=== PATIENT | female | born 1960 | race Caucasian/White ===

== ENCOUNTER 2018-01-05 17:35 | Inpatient (IN) | payer OTHER ==
[~2018-01-05] VITALS: Ht 162.6 cm; Wt 79.0 kg
[~2018-01-05 17:35] MED LIST: NO HOME MEDS
[2018-01-05 18:23] LABS: BASOPHILS % (AUTO) 0.4 % (0-1); EOSINOPHILS # (AUTO) 0.1 X10'3 (0-0.9); EOSINOPHILS % (AUTO) 2.3 % (0-6); HEMATOCRIT 39.3 % (35.0-45.0); LYMPHOCYTES # (AUTO) 1.2 X10'3 (1.1-4.8); LYMPHOCYTES % (AUTO) 25.3 % (21-51); MEAN CORPUSCULAR HEMOGLOBIN 32.6 PG (27.0-31.0); MEAN CORPUSCULAR HGB CONC 35.6 % (33.0-36.5); MEAN CORPUSCULAR VOLUME 91.6 FL (78-98); MONOCYTES # (AUTO) 0.3 X10'3 (0-0.9); MONOCYTES % (AUTO) 7.2 % (2-12); NEUTROPHILS % (AUTO) 64.8 % (42-75); PLATELET COUNT 157 X10'3 (140-440); RED BLOOD COUNT 4.29 X10'6 (4.20-5.60); RED CELL DISTRIBUTION WIDTH 12.8 % (11.5-14.5); WHITE BLOOD COUNT 4.7 X10'3 (4.5-11.0)
[2018-01-05 18:31] LABS: INR 0.9 INR; PARTIAL THROMBOPLASTIN TIME 26 SECONDS (22-32); PROTHROMBIN TIME 9.7 SECONDS (9.0-12.0)
[2018-01-05 18:36] LABS: ALANINE AMINOTRANSFERASE 38 U/L (12-78); ALBUMIN 3.9 G/DL (3.4-5.0); ALBUMIN/GLOBULIN RATIO 0.9 (1.1-1.5); ALKALINE PHOSPHATASE 128 IU/L (46-116); ANION GAP 9 (8-16); ASPARTATE AMINO TRANSFERASE 26 U/L (10-37); BILIRUBIN,TOTAL 0.4 MG/DL (0.1-1.0); BLOOD UREA NITROGEN 10 MG/DL (7-18); BUN/CREATININE RATIO 16.1 (6.6-38.0); CALCIUM 8.7 MG/DL (8.5-10.1); CHLORIDE 103 MMOL/L (99-107); CREATININE 0.62 MG/DL (0.40-0.90); GLUCOSE 112 MG/DL (70-104); POTASSIUM 3.8 MMOL/L (3.5-5.1); SODIUM 140 MMOL/L (135-145); TOTAL CARBON DIOXIDE 27.8 MMOL/L (24-32); TOTAL PROTEIN 8.2 G/DL (6.4-8.2); eGFR > 90 ML/MIN
[2018-01-05 18:40] LABS: TROPONIN I < 0.04 NG/ML (0.0-0.05)
[2018-01-05] MEDS ORDERED: aspirin 81mg tab.chew PO ONE (19:15)
[2018-01-05 19:47] LABS: CLARITY,URINE CLEAR (Clear); COLOR,URINE YELLOW (Yellow); GLUCOSE, URINE NEGATIVE (Neg); KETONES,URINE NEGATIVE (Neg); LEUKOCYTE ESTERASE ,URINE NEGATIVE (Neg); NITRITES, URINE NEGATIVE (Neg); OCCULT BLOOD,URINE SMALL (Neg); PROTEIN,URINE NEGATIVE (Neg); UROBILINOGEN,URINE 0.2 E.U/dL (0.2-1.0)
[2018-01-05 19:51] LABS: UA COLLECTION TYPE CLN CATCH MIDSTREAM
[2018-01-05 19:52] LABS: BACTERIA,URINE NONE SEEN /HPF (Neg); SQUAMOUS EPITHELIAL CELL,UR NONE SEEN /LPF (FEW); WBC,URINE NONE SEEN /HPF (0-4)
[2018-01-05] MEDS ORDERED: magnesium hydroxide 30ml (MOM) UD suspension PO PRN (21:55)
[2018-01-05] MEDS ORDERED: ondansetron/PF 4mg/2ml inj IV PRN (21:55)
[2018-01-05] MEDS ORDERED: mag hydrox/Alum hydrox/simeth 30ml oral suspension PO PRN (21:55)
[2018-01-05] MEDS ORDERED: acetaminophen 325mg tablet PO PRN (21:55)
[2018-01-05 22:30] VITALS: BP 129/78
[2018-01-06 02:15] VITALS: BP 113/61
[2018-01-06 06:00] VITALS: BP 124/57
[2018-01-06 06:03] LABS: BASOPHILS % (AUTO) 0.2 % (0-1); EOSINOPHILS # (AUTO) 0.2 X10'3 (0-0.9); EOSINOPHILS % (AUTO) 3.3 % (0-6); HEMATOCRIT 38.8 % (35.0-45.0); HEMOGLOBIN 13.9 g/dl (12.0-16.0); LYMPHOCYTES # (AUTO) 1.3 X10'3 (1.1-4.8); MEAN CORPUSCULAR HGB CONC 35.7 % (33.0-36.5); MEAN CORPUSCULAR VOLUME 92.3 FL (78-98); MEAN PLATELET VOLUME 9.2 FL (7.4-10.4); MONOCYTES # (AUTO) 0.3 X10'3 (0-0.9); NEUTROPHILS % (AUTO) 62.5 % (42-75); PLATELET COUNT 154 X10'3 (140-440); RED BLOOD COUNT 4.21 X10'6 (4.20-5.60); RED CELL DISTRIBUTION WIDTH 12.8 % (11.5-14.5); WHITE BLOOD COUNT 4.8 X10'3 (4.5-11.0)
[2018-01-06 06:19] LABS: ALANINE AMINOTRANSFERASE 38 U/L (12-78); ALBUMIN 3.6 G/DL (3.4-5.0); ALBUMIN/GLOBULIN RATIO 0.9 (1.1-1.5); ALKALINE PHOSPHATASE 105 IU/L (46-116); ANION GAP 9 (8-16); ASPARTATE AMINO TRANSFERASE 23 U/L (10-37); BILIRUBIN,TOTAL 0.7 MG/DL (0.1-1.0); BLOOD UREA NITROGEN 10 MG/DL (7-18); BUN/CREATININE RATIO 15.4 (6.6-38.0); CALCIUM 8.5 MG/DL (8.5-10.1); CHLORIDE 102 MMOL/L (99-107); CHOL/HDL RATIO 5.5 (0.00-4.99); CHOLESTEROL 249 MG/DL (0-200); CREATININE 0.65 MG/DL (0.40-0.90); GLUCOSE 99 MG/DL (70-104); HDL CHOLESTEROL 45 MG/DL (35-60); LDL CHOLESTEROL 179 MG/DL (50-100); POTASSIUM 3.7 MMOL/L (3.5-5.1); SODIUM 141 MMOL/L (135-145); TOTAL CARBON DIOXIDE 29.9 MMOL/L (24-32); TOTAL PROTEIN 7.7 G/DL (6.4-8.2); TRIGLYCERIDES 194 MG/DL (20-135); eGFR > 90 ML/MIN
[2018-01-06] MEDS: heparin, porcine 5000 units/ml vial SQ SCH ×2 (08:23→19:31)
[2018-01-06] MEDS: aspirin 325mg tablet PO SCH (08:23)
[2018-01-06 10:00] VITALS: BP 107/88
[2018-01-06 14:00] VITALS: BP 100/59
[2018-01-06 18:00] VITALS: BP 108/75
[2018-01-06] MEDS: atorvastatin 20mg tablet PO SCH (19:30)
[2018-01-06 22:00] VITALS: BP 117/66
[2018-01-07 02:10] VITALS: BP 117/57
[2018-01-07 05:57] LABS: BASOPHILS % (AUTO) 0.2 % (0-1); EOSINOPHILS # (AUTO) 0.2 X10'3 (0-0.9); EOSINOPHILS % (AUTO) 3.9 % (0-6); HEMATOCRIT 42.8 % (35.0-45.0); HEMOGLOBIN 14.8 g/dl (12.0-16.0); LYMPHOCYTES # (AUTO) 1.2 X10'3 (1.1-4.8); LYMPHOCYTES % (AUTO) 26.9 % (21-51); MEAN CORPUSCULAR HEMOGLOBIN 32.3 PG (27.0-31.0); MEAN CORPUSCULAR HGB CONC 34.6 % (33.0-36.5); MEAN CORPUSCULAR VOLUME 93.3 FL (78-98); MEAN PLATELET VOLUME 9.3 FL (7.4-10.4); MONOCYTES # (AUTO) 0.4 X10'3 (0-0.9); MONOCYTES % (AUTO) 8.2 % (2-12); NEUTROPHILS # (AUTO) 2.7 X10'3 (1.8-7.7); NEUTROPHILS % (AUTO) 60.8 % (42-75); PLATELET COUNT 164 X10'3 (140-440); RED BLOOD COUNT 4.59 X10'6 (4.20-5.60); RED CELL DISTRIBUTION WIDTH 13.3 % (11.5-14.5); WHITE BLOOD COUNT 4.4 X10'3 (4.5-11.0)
[2018-01-07 06:00] VITALS: BP 99/58
[2018-01-07 06:13] LABS: ALANINE AMINOTRANSFERASE 34 U/L (12-78); ALBUMIN 3.6 G/DL (3.4-5.0); ALBUMIN/GLOBULIN RATIO 0.8 (1.1-1.5); ALKALINE PHOSPHATASE 117 IU/L (46-116); ANION GAP 6 (8-16); ASPARTATE AMINO TRANSFERASE 22 U/L (10-37); BILIRUBIN,TOTAL 0.6 MG/DL (0.1-1.0); BLOOD UREA NITROGEN 14 MG/DL (7-18); BUN/CREATININE RATIO 20.9 (6.6-38.0); CALCIUM 8.8 MG/DL (8.5-10.1); CHLORIDE 102 MMOL/L (99-107); CREATININE 0.67 MG/DL (0.40-0.90); GLUCOSE 109 MG/DL (70-104); POTASSIUM 4.2 MMOL/L (3.5-5.1); SODIUM 140 MMOL/L (135-145); TOTAL CARBON DIOXIDE 32.1 MMOL/L (24-32); TOTAL PROTEIN 8.1 G/DL (6.4-8.2); eGFR 90 ML/MIN
[2018-01-07] MEDS: atorvastatin 20mg tablet PO SCH (08:34)
[2018-01-07] MEDS: aspirin 325mg tablet PO SCH (08:34)
[2018-01-07] MEDS: heparin, porcine 5000 units/ml vial SQ SCH (08:35)
[2018-01-07 10:00] VITALS: BP 123/75
[2018-01-07] MEDS ORDERED: ATOR20TA66 PO (12:51)
[2018-01-07] MEDS ORDERED: ASPI-1 PO (12:51)
== END 2018-01-07 14:10 | disposition home health service (06) | DRG 65 ==
LOC: ER 17:36 → ED HOLD 21:54 → ORTHO 4S 22:40
PROVIDERS: ADMIT Internal Medicine; ATTEND Internal Medicine
DX: I63.9 Cerebral infarction, unspecified (principal); G81.94 Hemiplegia, unspecified affecting left nondominant side; E78.5 Hyperlipidemia, unspecified; G89.29 Other chronic pain; M25.511 Pain in right shoulder; Z88.8 Allergy status to other drugs, medicaments and biological substances
CPT/HCPCS: 36415; 70450; 70544; 70551; 71045; 80053; 80061; 81001; 82948; 83735; 84484; 85025; 85610; 85730; 87070; 93005; 93306; 93880; 97116; 97161; 97530; 99285; J1644

== ENCOUNTER 2021-08-02 15:12 | Emergency (ER) | payer MEDICAID ==
[~2021-08-02] VITALS: Ht 157.5 cm; Wt 80.0 kg
[~2021-08-02 15:12] MED LIST changes: +ASPI-1 PO; +ATOR20TA66 PO; -NO HOME MEDS
[2021-08-02 16:01] VITALS: BP 121/70
== END 2021-08-02 18:05 | disposition home or self-care (01) ==
LOC: ER 15:13
DX: M25.561 Pain in right knee (principal); Z98.890 Other specified postprocedural states; Z88.8 Allergy status to other drugs, medicaments and biological substances; Z79.82 Long term (current) use of aspirin; Z79.899 Other long term (current) drug therapy
CPT/HCPCS: 73564; 99283

== ENCOUNTER 2023-06-14 12:18 | Inpatient (IN) | payer MEDICAID ==
[~2023-06-14] VITALS: Ht 162.6 cm; Wt 80.0 kg
[2023-06-14] MEDS ORDERED: iohexol 350MG/ML 100ml bottle IV ONE (13:01)
[2023-06-14 13:07] LABS: BASOPHILS % (AUTO) 0.7 % (0-1); EOSINOPHILS # (AUTO) 0.1 X10'3 (0-0.9); EOSINOPHILS % (AUTO) 2.1 % (0-6); HEMATOCRIT 41.7 % (35.0-45.0); HEMOGLOBIN 14.4 g/dl (12.0-16.0); LYMPHOCYTES # (AUTO) 1.2 X10'3 (1.1-4.8); LYMPHOCYTES % (AUTO) 24.3 % (21-51); MEAN CORPUSCULAR HEMOGLOBIN 33.2 PG (27.0-31.0); MEAN CORPUSCULAR HGB CONC 34.6 g/dL (33.0-36.5); MEAN PLATELET VOLUME 9.7 FL (7.4-10.4); MONOCYTES # (AUTO) 0.3 X10'3 (0-0.9); MONOCYTES % (AUTO) 6.1 % (2-12); NEUTROPHILS # (AUTO) 3.3 X10'3 (1.8-7.7); NEUTROPHILS % (AUTO) 66.8 % (42-75); PLATELET COUNT 137 X10'3 (140-440); RED BLOOD COUNT 4.34 X10'6 (4.20-5.60); RED CELL DISTRIBUTION WIDTH 13.1 % (11.5-14.5); WHITE BLOOD COUNT 4.9 X10'3 (4.5-11.0)
[2023-06-14 13:12] LABS: APTT 29 SECONDS (22-32); PROTHROMBIN TIME 10.4 SECONDS (9.0-12.0)
[2023-06-14 13:13] LABS: ALANINE AMINOTRANSFERASE 47 U/L (12-78); ALBUMIN 3.8 G/DL (3.4-5.0); ALBUMIN/GLOBULIN RATIO 0.9 (1.1-1.5); ALKALINE PHOSPHATASE 106 IU/L (46-116); ANION GAP 4 (8-16); ASPARTATE AMINO TRANSFERASE 29 U/L (10-37); BILIRUBIN,TOTAL 0.5 MG/DL (0.1-1.0); BLOOD UREA NITROGEN 9 MG/DL (7-18); BUN/CREATININE RATIO 14.3 (10.0-20.0); CALCIUM 8.8 MG/DL (8.5-10.1); CHLORIDE 102 MMOL/L (99-107); CREATININE 0.63 MG/DL (0.40-0.90); GLUCOSE 119 MG/DL (70-104); POTASSIUM 4.3 MMOL/L (3.5-5.1); SODIUM 137 MMOL/L (135-145); TOTAL CARBON DIOXIDE 31.5 MMOL/L (24-32); TOTAL PROTEIN 8.1 G/DL (6.4-8.2); eCRCL 78 ML/MIN; eGFR > 90 ML/MIN
[2023-06-14] MEDS ORDERED: aspirin 81mg tab.chew PO ONE (13:50)
[2023-06-14] MEDS ORDERED: ketorolac trometh. 30mg/ml inj. IV ONE (14:20)
[2023-06-14] MEDS ORDERED: acetaminophen 325mg tablet PO PRN (15:25)
[2023-06-14] MEDS ORDERED: mag hydrox/Alum hydrox/simeth 30ml oral suspension PO PRN (15:25)
[2023-06-14] MEDS ORDERED: magnesium hydroxide 30ml (MOM) UD suspension PO PRN (15:25)
[2023-06-14] MEDS ORDERED: potassium Cl 20 mEq SR tablet PO PRN ×2 (15:25)
[2023-06-14] MEDS ORDERED: ondansetron/PF 4mg/2ml inj IV PRN (15:25)
[2023-06-14] MEDS ORDERED: magnesium 4gm in 100ml NS 100 ML IV PRN (15:25)
[2023-06-14] MEDS ORDERED: magnesium 2GM in 50ml NS 50 ML IV PRN (15:25)
[2023-06-14] MEDS ORDERED: potassium Cl 40MEQ/1/2NS 520ml 520 ML IV PRN (15:25)
[2023-06-14 16:37] LABS: BILIRUBIN,URINE NEGATIVE (Neg); CLARITY,URINE CLEAR (Clear); COLOR,URINE YELLOW (Yellow); GLUCOSE, URINE NEGATIVE (Neg); KETONES,URINE NEGATIVE (Neg); LEUKOCYTE ESTERASE ,URINE NEGATIVE (Neg); NITRITES, URINE NEGATIVE (Neg); OCCULT BLOOD,URINE TRACE-INTACT (Neg); PROTEIN,URINE NEGATIVE (Neg); UROBILINOGEN,URINE 0.2 E.U/dL (0.2-1.0)
[2023-06-14 16:38] LABS: UA COLLECTION TYPE CLN CATCH MIDSTREAM
[2023-06-14 16:43] LABS: BACTERIA,URINE NONE SEEN /HPF (Neg); RBC,URINE 0-2 /HPF (0-2); SQUAMOUS EPITHELIAL CELL,UR NONE SEEN /LPF (FEW); WBC,URINE NONE SEEN /HPF (0-4)
[2023-06-14 16:44] LABS: MUCUS STRANDS NONE SEEN /LPF (Neg)
[2023-06-14] MEDS: K and/or MAG REPLACEMENT MC SCH (20:00)
[2023-06-14 20:25] VITALS: BP 115/58; PULSE 60; RESP 16; TEMP 98.6; O2SAT 97
[2023-06-14] MEDS: heparin, porcine 5000 units/ml vial SQ SCH (21:22)
[2023-06-14] MEDS: docusate sod 100mg capsule PO SCH (21:22)
[2023-06-14] MEDS: acetaminophen 325mg tablet PO PRN (21:27)
[2023-06-14 22:00] VITALS: BP 135/75; PULSE 56; RESP 14; TEMP 97.7; O2SAT 96
[2023-06-15 06:00] VITALS: BP 100/49; PULSE 48; RESP 16; TEMP 97.6; O2SAT 96
[2023-06-15 06:04] LABS: BASOPHILS % (AUTO) 0.5 % (0-1); EOSINOPHILS # (AUTO) 0.2 X10'3 (0-0.9); EOSINOPHILS % (AUTO) 4.5 % (0-6); HEMATOCRIT 40.1 % (35.0-45.0); HEMOGLOBIN 13.8 g/dl (12.0-16.0); LYMPHOCYTES # (AUTO) 1.1 X10'3 (1.1-4.8); LYMPHOCYTES % (AUTO) 29.6 % (21-51); MEAN CORPUSCULAR HEMOGLOBIN 33.1 PG (27.0-31.0); MEAN CORPUSCULAR HGB CONC 34.5 g/dL (33.0-36.5); MEAN CORPUSCULAR VOLUME 96.2 FL (78-98); MEAN PLATELET VOLUME 9.5 FL (7.4-10.4); MONOCYTES # (AUTO) 0.3 X10'3 (0-0.9); MONOCYTES % (AUTO) 8.9 % (2-12); NEUTROPHILS # (AUTO) 2.1 X10'3 (1.8-7.7); NEUTROPHILS % (AUTO) 56.5 % (42-75); PLATELET COUNT 127 X10'3 (140-440); RED BLOOD COUNT 4.17 X10'6 (4.20-5.60); WHITE BLOOD COUNT 3.7 X10'3 (4.5-11.0)
[2023-06-15 06:14] LABS: ALANINE AMINOTRANSFERASE 37 U/L (12-78); ALBUMIN 3.5 G/DL (3.4-5.0); ALBUMIN/GLOBULIN RATIO 0.9 (1.1-1.5); ALKALINE PHOSPHATASE 90 IU/L (46-116); ANION GAP 5 (8-16); ASPARTATE AMINO TRANSFERASE 26 U/L (10-37); BILIRUBIN,TOTAL 0.6 MG/DL (0.1-1.0); BLOOD UREA NITROGEN 12 MG/DL (7-18); BUN/CREATININE RATIO 21.8 (10.0-20.0); CALCIUM 8.6 MG/DL (8.5-10.1); CHLORIDE 102 MMOL/L (99-107); CHOL/HDL RATIO 5.1 (0.00-4.99); CHOLESTEROL 246 MG/DL (0-200); CREATININE 0.55 MG/DL (0.40-0.90); GLUCOSE 105 MG/DL (70-104); HDL CHOLESTEROL 48 MG/DL (35-60); LDL CHOLESTEROL 153 MG/DL (50-100); POTASSIUM 3.5 MMOL/L (3.5-5.1); SODIUM 138 MMOL/L (135-145); TOTAL CARBON DIOXIDE 31.3 MMOL/L (24-32); TOTAL PROTEIN 7.4 G/DL (6.4-8.2); TRIGLYCERIDES 204 MG/DL (20-135); eCRCL 89 ML/MIN; eGFR > 90 ML/MIN
[2023-06-15] MEDS: acetaminophen 325mg tablet PO PRN (06:38)
[2023-06-15 07:55] VITALS: RESP 16
[2023-06-15] MEDS: K and/or MAG REPLACEMENT MC SCH (08:00)
[2023-06-15] MEDS ORDERED: atorvastatin 20mg tablet PO SCH (08:15)
[2023-06-15] MEDS: docusate sod 100mg capsule PO SCH (12:18)
[2023-06-15] MEDS: heparin, porcine 5000 units/ml vial SQ SCH (12:19)
[2023-06-15] MEDS ORDERED: ATOR40TA71 PO ×3 (13:37→17:00)
[2023-06-15] MEDS ORDERED: ASPI81TA52 PO ×3 (13:37→17:00)
[2023-06-17 09:17] LABS: HBSAG SCREEN Negative (Negative); HEP B CORE AB, IGM Negative (Negative); HEP B CORE AB, TOT Positive (Negative)
== END 2023-06-15 15:10 | disposition home health service (06) | DRG 47 ==
LOC: ER 12:19 → ED HOLD 15:33 → EDBEDREQ 19:51 → ORTHO 4S 20:17
PROVIDERS: ADMIT Family Medicine; ATTEND Family Medicine
PROC: B3251ZZ Computerized Tomography (CT Scan) of Bilateral Common Carotid Arteries using Low Osmolar Contrast (ICD-10-PCS; principal; 2023-06-14)
PROC: B32G1ZZ Computerized Tomography (CT Scan) of Bilateral Vertebral Arteries using Low Osmolar Contrast (ICD-10-PCS; 2023-06-14)
PROC: B32R1ZZ Computerized Tomography (CT Scan) of Intracranial Arteries using Low Osmolar Contrast (ICD-10-PCS; 2023-06-14)
PROC: B3281ZZ Computerized Tomography (CT Scan) of Bilateral Internal Carotid Arteries using Low Osmolar Contrast (ICD-10-PCS; 2023-06-14)
DX: G45.9 Transient cerebral ischemic attack, unspecified (principal); G93.41 Metabolic encephalopathy; E78.00 Pure hypercholesterolemia, unspecified; Z79.82 Long term (current) use of aspirin; Z79.899 Other long term (current) drug therapy; Z88.8 Allergy status to other drugs, medicaments and biological substances; I69.334 Monoplegia of upper limb following cerebral infarction affecting left non-dominant side; Z87.891 Personal history of nicotine dependence
CPT/HCPCS: 36415; 70450; 70496; 70498; 70551; 71045; 80053; 80061; 81001; 82948; 83735; 85025; 85610; 85730; 86704; 86705; 86885; 86900; 86901; 87081; 87340; 93306; 99285; A6213; G0378; J1644; J1885; J3490; Q9967

== ENCOUNTER 2025-06-13 10:36 | Emergency (ER) | payer MEDICAID ==
[~2025-06-13] VITALS: Ht 165.1 cm; Wt 81.7 kg
[~2025-06-13 10:36] MED LIST changes: -ASPI-1 PO; +ASPI81TA52 PO; -ATOR20TA66 PO; +ATOR40TA71 PO
[2025-06-13 10:37] VITALS: TEMP 98
--- NOTE | 2025-06-13 12:29 | Physician Documentation ---
History of Present Illness ~ Chief Complaint: Needlestick Stated Complaint: EXPOSURE Time Seen by MD: 12:07 Primary Medical Doctor: NO REGULAR PMD, DR Fairchild: WORKERS COMP HPI 64-year-old female presents to the ED with a complaint of a needle stick yes terday while house cleaning. States that the residents of the home or IV drug users she is concerned that she may have contracted something in the needle stick Tetanus within 5 Years?: No Medication Reconciliation Allergies: Coded Allergies: celecoxib (Verified Allergy, Unknown, 01/05/18) Uncoded Allergies: BLOOD TRANSFUSION (Allergy, Severe, 06/14/23) yazidi Scheduled Aspirin (Aspirin EC), 1 TAB PO DAILY Atorvastatin Calcium (Atorvastatin Calcium), 1 TAB PO DAILY Past Medical History Past Medical History: Extremity Fracture Past Surgical History: orthopedic surgeries Patient History: Patient reports no known family medical history. Alcohol Use: None Lives with: Family Lives In: Home Occupation: retired Review of Systems All Other Systems at this time: Reviewed and Negative ROS As stated above in the HPI, otherwise all systems are reviewed and negative. Physical Exam Vital Signs: Temperature: 98.0, Source: Temporal, Heart Rate: 71, Respiratory Rate: 16, BP: 117/64, Pulse Oximetry: 97, Weight: 81.700 Oxygen Flow Rate: 0 Physical Exam General: Alert, no apparent distress. HEENT: PERRL, EOMI, no injection, moist mucous membranes. Extremities: Normal range of motion, no deformity. no Signs of deformity small pinpoint palm of the right hand where needle stick occurred Neurologic: Oriented x4. Psychiatric: Normal mood and affect. Skin: Normal color, warm and dry. No edema, no ecchymosis. Progress Results/Orders Results/Orders Completed Orders - CHECO PATEL NP Hiv Ab 1&2 Rapid Scn (06/13/25 12:56) Vital Signs 06/13/25 06/13/25 10:37 12:33 Temp 98.0 Pulse 71 78 Resp 16 16 B/P (MAP) 117/64 114/68 Pulse Ox 97 98 O2 Flow Rate 0 Laboratory Tests Test 06/13/25 12:56 HIV (1&2) Antibody Non-reactive Medical Decision Making Additional information obtaine: old records Findings Ordered the hep panel and HIV for evaluation and potential treatment. Advised the patient that it will take some time to get the results and she can follow up accordingly Differential Dx:Considerations: Include: Abrasion, Body Fluid Exposure, Contusion, Infectious disease expos., Laceration, Puncture wound, Other Departure Disposition: 01 HOME / SELF CARE / HOMELESS Impression: Primary Impression: Needlestick injury accident Condition: Improved Discharge Instructions: Needlestick and Sharps Injury Additional Instructions: You may call and follow up on your test results. Generally the hospital we will call you she have any positive results Referrals: NO PRIMARY CARE PROVIDER (PCP) Signature Scribe Signature: f Attestation: Scribed for Checo Patel Family Engagement Specialist by Checo Lynch NP . 06/13/25 18:12 CHECO PATEL NP Jun 13, 2025 12:29
[2025-06-13 12:33] VITALS: BP 114/68; PULSE 78; RESP 16; O2SAT 98
[2025-06-13 15:00] LABS: HIV ANTIBODY 1&2 RAPID NON-REACTIVE (Neg)
== END 2025-06-13 12:59 | disposition home or self-care (01) ==
LOC: ER 10:36
DX: Z77.21 Contact with and (suspected) exposure to potentially hazardous body fluids (principal); Z79.82 Long term (current) use of aspirin; Z79.899 Other long term (current) drug therapy; Z98.890 Other specified postprocedural states; W46.0XXA Contact with hypodermic needle, initial encounter; Y93.89 Activity, other specified; Y92.89 Other specified places as the place of occurrence of the external cause; Y99.0 Civilian activity done for income or pay
CPT/HCPCS: 36415; 86703; 99283